=== PATIENT | male | born 1985 | race Caucasian/White ===

== ENCOUNTER 2018-10-15 23:36 | Emergency (ER) | payer SELFPAY ==
[2018-10-16] MEDS ORDERED: DIAZEPAM 5 MG TABLET PO ONE (01:04)
--- NOTE | 2018-10-16 01:10 | ER Document Report ---
ED General - General Chief Complaint: Psych Problem Stated Complaint: PSYCH EVAL Time Seen by Provider: 10/16/18 00:44 Notes: Patient is a 33-year-old male with a past medical history of depression, methamphetamine abuse, states that he "plays around with opiates" who presents with increasing anxiety, depression and "I do not know if I am suicidal or not" . Admits that he has been using methamphetamine heavily over the last several days, has been a heavy user for the past 2 years. The patient reports that he has been institutionalized in the past for depression and suicidality but does not provide additional details. He has not trying to improve his symptoms. Believes that methamphetamine is worsening his symptoms. He is seeking to speak to a behavioral health counselor. Denies any acute medical concerns. TRAVEL OUTSIDE OF THE [place] IN LAST 30 DAYS: No - Related Data Allergies/Adverse Reactions: No Known Allergies Allergy (Unverified 10/15/18 23:40) Past Medical History - General Information source: Patient - Social History Smoking Status: Current Every Day Smoker Frequency of alcohol use: Occasional Drug Abuse: Heroin, Methamphetamine Lives with: Alone Family History: Reviewed & Not Pertinent Patient has suicidal ideation: No Patient has homicidal ideation: No Renal/ Medical History: Denies: Hx Peritoneal Dialysis Review of Systems - Review of Systems Notes: Constitutional: Negative for fever. HENT: Negative for sore throat. Eyes: Negative for visual changes. Cardiovascular: Negative for chest pain. Respiratory: Negative for shortness of breath. Gastrointestinal: Negative for abdominal pain, vomiting or diarrhea. Genitourinary: Negative for dysuria. Musculoskeletal: Negative for back pain. Skin: Negative for rash. Neurological: Negative for headaches, weakness or numbness. 10 point ROS negative except as marked above and in HPI. Physical Exam - Vital signs Vitals: Temp Pulse Resp BP Pulse Ox 99.1 F 128 H 18 146/92 H 97 10/15/18 23:42 10/15/18 23:42 10/15/18 23:42 10/15/18 23:42 10/15/18 23:42 Interpretation: Tachycardic Notes: PHYSICAL EXAMINATION: GENERAL: Well-appearing, well-nourished and in no acute distress. HEAD: Atraumatic, normocephalic. EYES: Pupils equal round and reactive to light, extraocular movements intact, sclera anicteric, conjunctiva are normal. ENT: nares patent, oropharynx clear without exudates. Moist mucous membranes. NECK: Normal range of motion, supple without lymphadenopathy LUNGS: Breath sounds clear to auscultation bilaterally and equal. No wheezes rales or rhonchi. HEART: Regular tachycardia without murmurs ABDOMEN: Soft, nontender, normoactive bowel sounds. No guarding, no rebound. No masses appreciated. EXTREMITIES: Normal range of motion, no pitting or edema. No cyanosis. NEUROLOGICAL: No focal neurological deficits. Moves all extremities spontaneously and on command. PSYCH: Somewhat anxious, poor eye contact, depressed mood SKIN: Warm, Dry, normal turgor, no rashes or lesions noted. Course - Re-evaluation Re-evalutation: 10/16/18 01:08 Patient presents with polysubstance abuse with likely associated dysphoria and underlying depression that has not been treated. Patient denies any acute medical concerns. Medical screening exam unremarkable. Medical screening labs are pending. The patient is in no significant distress although does appear somewhat anxious. Will receive 5 mg of diazepam orally. He is otherwise cleared for evaluation and disposition by behavioral health services in the morning. He does not meet involuntary criteria at this time. He will be held on a voluntary basis. - Vital Signs Vital signs: Temp Pulse Resp BP Pulse Ox 99.1 F 128 H 18 146/92 H 97 10/15/18 23:42 10/15/18 23:42 10/15/18 23:42 10/15/18 23:42 10/15/18 23:42 Discharge - Discharge Clinical Impression: Polysubstance abuse, Anxiety Depression Qualifiers: Depression Type: unspecified Qualified Code(s): F32.9 - Major depressive disorder, single episode, unspecified Condition: Fair
[2018-10-16 01:38] LABS: ABSOLUTE EOSINOPHILS # (AUTO) 0.3 10^3/uL (0.0-0.6); ABSOLUTE MONOCYTES (AUTO) 0.9 10^3/uL (0.1-1.4); ABSOLUTE NEUT (AUTO) 9.5 10^3/uL (1.7-8.2); BASOPHILS % (AUTO) 0.3 % (0-2); EOSINOPHILS % (AUTO) 2.1 % (0-6); HEMATOCRIT 48.4 % (37.9-51.0); HEMOGLOBIN 17.2 g/dL (13.5-17.0); LYMPHOCYTES % (AUTO) 15.5 % (13-45); MEAN CORPUSCULAR HEMOGLOBIN 30.9 pg (27.0-33.4); MEAN CORPUSCULAR HGB CONC 35.5 g/dL (32.0-36.0); MEAN CORPUSCULAR VOLUME 87 fl (80-97); PLATELET COUNT 390 10^3/uL (150-450); RED BLOOD COUNT 5.57 10^6/uL (4.35-5.55); RED CELL DISTRIBUTION WIDTH 13.7 % (11.5-14.0); SEGMENTED NEUTROPHILS % (AUTO) 75.1 % (42-78); TOTAL CELLS COUNTED % (AUTO) 100 %; WHITE BLOOD COUNT 12.7 10^3/uL (4.0-10.5)
[2018-10-16 01:45] LABS: ALANINE AMINOTRANSFERASE 53 U/L (21-72); ALBUMIN 4.7 g/dL (3.5-5.0); ALKALINE PHOSPHATASE 118 U/L (38-126); ANION GAP 16 (5-19); ASPARTATE AMINO TRANSFERASE 39 U/L (17-59); BILIRUBIN,DIRECT 0.5 mg/dL (0.0-0.4); BILIRUBIN,TOTAL 0.8 mg/dL (0.2-1.3); BLOOD UREA NITROGEN 14 mg/dL (7-20); CALCIUM 10.3 mg/dL (8.4-10.2); CARBON DIOXIDE 25 mmol/L (22-30); CHLORIDE 99 mmol/L (98-107); GLUCOSE 117 mg/dL (75-110); TOTAL PROTEIN 8.2 g/dL (6.3-8.2)
[2018-10-16 01:46] LABS: ACETAMINOPHEN < 10 ug/mL (10-30); ALCOHOL < 10 mg/dL (NONE DETECTED); SALICYLATE < 1.0 mg/dL (2.0-20.0)
[2018-10-16 02:11] LABS: APPEARANCE,URINE CLOUDY; BILIRUBIN,URINE NEGATIVE (NEGATIVE); COLOR,URINE AMBER; GLUCOSE, URINE 150 mg/dL (NEGATIVE); KETONES,URINE 20 mg/dL (NEGATIVE); LEUKOCYTE ESTERASE,URINE NEGATIVE (NEGATIVE); NITRITE,URINE NEGATIVE (NEGATIVE); PROTEIN,URINE 30 mg/dL (NEGATIVE); URINE SPECIFIC GRAVITY 1.025
[2018-10-16 02:30] LABS: URINE BARBITURATES SCREEN NEGATIVE; URINE BENZODIAZEPINES SCREEN NEGATIVE; URINE COCAINE SCREEN NEGATIVE; URINE MARIJUANA (THC) SCREEN UNCONFIRMED POSITIVE; URINE METHADONE SCREEN NEGATIVE; URINE PHENCYCLIDINE SCREEN NEGATIVE
--- NOTE | 2018-10-16 06:57 | EKG REPORT ---
SEVERITY:- NORMAL ECG - SINUS RHYTHM : Confirmed by: Corrine Good 16-Oct-2018 06:56:21
[2018-10-16] MEDS ORDERED: VENLAFAXINE HCL 37.5 MG CAP.SR.24H PO SCH (10:45)
[2018-10-16] MEDS: BUSPIRONE HCL 10 MG TABLET PO SCH ×2 (11:17→19:13)
[2018-10-16] MEDS: CHLORPROMAZINE HCL 50 MG TABLET PO SCH ×3 (11:17→21:30)
[2018-10-16] MEDS: BENZTROPINE MESYLATE 1 MG TABLET PO SCH (11:17)
[2018-10-16] MEDS: VENLAFAXINE HCL 37.5 MG CAP.SR.24H PO SCH (11:20)
--- NOTE | 2018-10-16 11:50 | PSYCHOLOGICAL NOTE ---
Psych Note - Psych Note Date seen by psych provider: 10/16/18 Time seen by psych provider: 07:25 - Chart review at 0725. Evaluation from 0828- [id number]. Psych Note: Reason for Consult: Recent relapse of methamphetamine, polysubstance use, anxiety, depression, paranoia Contact Permissions: None at this time. Noted family in [place] and [place] but said lost most of his friends and family Patient is a 33 year old male who presented to the ED late last evening as a walk in for recent relapse of methamphetamine and other substances after partying with friends. Patient identified he had been "3 weeks sober prior to this relapse." He stated "I just got here from [place]" and admitted to "having been in SA programs there." He stated "I don't stay anywhere especially since I had to leave the place I was working." He denied wanting detox and commented "Not so much detox, I don't want to waste anyone's time, it was a relapse." He agreed to being linked to outpatient services and said "I want any kind of help I can get, I keep running from my problems, I'm sick of taking advantage of people, I don't want to run anymore, I tried that, it doesn't work, I don't want to ." He stated "when he was 22 he went to rehab for 12 days and never really gave it a chance, has been in and out of sober living houses and I get stuff together my way then sneak around." He informed this clinician "I'm all in my head, I think people are trying to kill me, I feel like I can't trust anyone." He admitted to using methamphetamine "yesterday, it was daylight, maybe in the morning." He acknowledged his drug of choice is "speed." He admitted to smoking marijuana for the past 3 weeks. UDS was positive for opiates , methamphetamines and cannabis. He denied SI/HI. He denied being prescribed previous medications. He acknowledged he's "had 3-4 previous inpatient hospitalizations around [place] the past 2 years." He commented "I get honest , then stop, i don't want to be that person anymore." He denied legal issues. He stated he does not have transportation/vehicle or a place to live. He reported his family are in [place] and [place] but he has lost all them and friends due to SA use. Observed patient sitting in the chair in his room. His pupils were dilated, he presented restless and fidgety, was picking his fingernails/had some ticks/had involuntary mouth movement showing teeth, and endorsed persecutory delusions ( thought people were going to kill him) as well as paranoia (said he can't trust anyone). He denied SI/HI. Diagnosis: Polysubstance Use 304.00 (F11.20) Opioid Use Disorder 304.40 (F15.20) Methamphetamine Use Disorder (and intoxication) 304.30 (F12.20 Cannabis Use Disorder Moderate to Severe Medication recommendations made by the psychiatric medical provider, Dr. Jarocho MD., includes: Add Thorazine 50MG every 8 hours for psychosis (paranoia, intrusive thoughts of people wanting to kill him) Add Cogentin 1MG dailt to curb tremor side effects often associated with antipsychotic medications Add Effexor 37.5MG twice a day for depression/energy/to curb cravings Add Buspar 10MG twice a day for anxiety/depression/sleep Impression/Plan: Recommendation to do 24 Hour IVC Petition given patient is coming down from multiple substances (methamphetamine, opiates, Cannabis), endorsed persecutory delusions (thinking people want to kill him), paranoia ( not trusting anyone) and restless (sitting in chair picking at nails/ticks/ involuntary mouth movements showing teeth). Pupils were dilated. He denied SI/ HI. The psychosis impairs insight, judgment and impulse control. Started medications. Will reassess tomorrow morning after being medication, getting rest /sleep and has had time to sober up. Today he stated he was interested in any kind of outpatient help. Consulted with Dr. Clarek regarding the management and care of patient. ED Physician in agreement with recommendations.
--- NOTE | 2018-10-16 13:45 | ER Document Report ---
Doctor's Note Notes: 10/16/18 13:43 Patient chart was reviewed. He was started on Thorazine 50 mg every 8 hours, Cogentin 1 mg daily, Effexor 37.5 mg twice daily, and BuSpar 10 mg twice daily. He seems to remain under the influence of methamphetamine and shows some psychosis. IVC paperwork was filled out and the patient will be observed, medicated and reevaluated tomorrow.
[2018-10-16 16:35] VITALS: BP 121/82
[2018-10-17] MEDS ORDERED: VENLAFAXINE HCL 37.5 MG CAP.SR.24H PO ONE (00:05)
[2018-10-17] MEDS: VENLAFAXINE HCL 37.5 MG CAP.SR.24H PO SCH ×2 (03:52→09:39)
[2018-10-17] MEDS: CHLORPROMAZINE HCL 50 MG TABLET PO SCH ×2 (07:12→13:39)
[2018-10-17] MEDS: BUSPIRONE HCL 10 MG TABLET PO SCH (09:39)
[2018-10-17] MEDS: BENZTROPINE MESYLATE 1 MG TABLET PO SCH (09:39)
--- NOTE | 2018-10-17 15:12 | ER Document Report ---
Doctor's Note Notes: 10/17/18 15:12 The patient is doing much better today. He told the psych workers that if he could get out of here prior to 11 AM, there was someone he could call and stay with, as he is otherwise homeless. He was discharged with medications and referral to I to help with his psychological problems and substance abuse problems.
--- NOTE | 2018-10-17 22:34 | PSYCHOLOGICAL NOTE ---
Psych Note - Psych Note Date seen by psych provider: 10/17/18 Time seen by psych provider: 09:25 - Chart review at 0925. Re-eavluation from [id number] Psych Note: Reason for Consult: 1st re-evaluation, 24 Hour IVC Petition, Recent relapse of methamphetamine, polysubstance use, anxiety, depression, paranoia, medication started to help with all previously mentioned symptoms Contact Permissions: None at this time. Noted family in [place] and [place] but said lost most of his friends and family Patient is a 33 year old male who is on a 24 Hour IVC Petition in the ED due to recent relapse of methamphetamine and other substances after partying with friends the night before last who then presented delusional, paranoid and depressed. Medication regimen was started to aid with these symptoms. Today patient stated "pretty bad" when asked how he was doing. He said he remembered talking with this clinician yesterday morning. He has a scratch and dried blood on his nose and when asked what happened he said "I was picking at it." He denied SI/HI. He did not endorse delusions or paranoia and when asked about if he felt like people were trying to kill him he said "no." He denied having any MH diagnosis. He said he was still interested in SA treatment. Patient was alert and oriented to person, place and situation. Mood was depressed with flat affect (likely some related to sobering up from multiple substances). He denied SI/HI. He did not appear to be responding to internal stimuli as evidenced by fair eye contact, answering questions appropriately when addressed, staying on topic, carrying on dialogue conversation and being engaged in the evaluation and making steps for treatment such as calling [facility]. Thought processes were linear and organized. Conversational speech was within normal limits for rate, tone and prosody. Intellectual abilities are estimated to be average. Insight, judgment and impulse control were fair as evidenced by being sober, linear thinking, no delusional thinking and being involved in planning and moving forward with plan of care for treatment. Attending nurse identified patient had been awake this morning and afternoon, he took his morning medication and used the restroom a couple times. Diagnosis: Polysubstance Use 304.00 (F11.20) Opioid Use Disorder 304.40 (F15.20) Methamphetamine Use Disorder (and intoxication) 304.30 (F12.20 Cannabis Use Disorder Moderate to Severe Medication recommendations made by the psychiatric medical provider, Dr. Jarocho MD., includes: Provide scripts for the following administered medications Effexor 37.5MG twice a day for depression/energy/to curb cravings Buspar 10MG twice a day for anxiety/depression/sleep The Thorazine and Cogentin were just to aid in the psychosis (paranoia/delusions) being experienced from meth use and coming down Impression/Plan: Patient is cleared from acute psychiatric services. Recommendation to rescind 24 Hour IVC Petition given patient has had time to sober up from multiple substances (methamphetamine, opiates, Cannabis), no longer endorsed persecutory delusions (thinking people want to kill him)/paranoia (not trusting anyone) and was able to lay in bed still without restless behaviors such as picking at nails/ticks/involuntary mouth movements showing teeth. Pupils were still somewhat dilated but not as much as yesterday. He denied SI/HI. He said he was still interested in any kind of outpatient help and being linked up with [facility]. Provided patient with the outpatient MH resource sheet which highlighted the contact number for [facility], as well as the [facility] paperwork. Assisted patient with calling [facility] at the nurses station which was set up for [facility] to meet him in ED lobby at discharge. This clinician contacted [facility] after hours to inquire if someone did in fact meet patient in lobby since they never called, the female after hours worker confirmed Angela had met with patient. Consulted with Dr. Clarke regarding the management and care of patient. ED Physician in agreement with recommendations.
== END 2018-10-17 14:49 | disposition home or self-care (01) ==
LOC: ER 23:36
DX: F11.20 Opioid dependence, uncomplicated (principal); F15.20 Other stimulant dependence, uncomplicated; F12.20 Cannabis dependence, uncomplicated; F32.9 Major depressive disorder, single episode, unspecified; F41.9 Anxiety disorder, unspecified; F17.200 Nicotine dependence, unspecified, uncomplicated; Z59.0 Homelessness
CPT/HCPCS: 93005; 99284; 36415; 80307 ×4; 85025; 80053; 81001; 93010; J3490 ×4